=== PATIENT | female | born 1945 | race Caucasian/White ===

== ENCOUNTER 2020-03-15 21:54 | Inpatient (IN) | payer MEDICARE, OTHER ==
[~2020-03-15] VITALS: Ht 165.1 cm; Wt 77.1 kg
--- NOTE | 2020-03-15 22:07 | NUR ---
PT CIND[facility]UBE REPLACEMENT. PER REPORT "PEG TUBE WAS PULLED OUT APPROXIMATELY THIS MORNING". TRACHEOSTOMY IN PLACE ON O2 2LPM. PT NONVERBAL AT BASELINE BUT RESPONSIVE TO TACTILE STIMULI, NO ACUTE DISTRESS NOTED. PT CONNECTED TO THE IMPORT CUST[employer]S CLEARING AGENT AND POX.
--- NOTE | 2020-03-15 22:31 | NUR ---
JEWEL STAKER AT BEDSIDE FOR BLOOD DRAW
[2020-03-15 22:39] LABS: BASOPHILS % (AUTO) 0.4 % (0.0-2.0); EOSINOPHILS % (AUTO) 1.7 % (0.0-6.0); HEMATOCRIT 31 % (33-45); HEMOGLOBIN 10.1 g/dL (11.5-14.8); LYMPHOCYTES # (AUTO) 1.3 /CMM (0.8-4.8); LYMPHOCYTES % (AUTO) 11.3 % (20.0-44.0); MEAN CORPUSCULAR HGB CONC 32 g/dl (31.0-36.0); MEAN CORPUSCULAR VOLUME 93 fL (82-100); MONOCYTES # (AUTO) 0.5 /CMM (0.1-1.30); MONOCYTES % (AUTO) 4.6 % (2.0-12.0); NEUTROPHILS # (AUTO) 9.4 /CMM (1.8-8.9); PLATELET COUNT (AUTO) 687 /CMM (150-450); RED BLOOD CELL COUNT(AUTO) 3.34 MIL/uL (4.0-5.2); WHITE BLOOD COUNT (AUTO) 11.5 K/uL (4.3-11.0)
[2020-03-15 22:59] LABS: ALANINE AMINOTRANSFERASE 17 U/L (12-78); ALKALINE PHOSPHATASE 141 U/L (46-116); ASPARTATE AMINOTRANSFERASE 19 U/L (15-37); BILIRUBIN,TOTAL 0.2 mg/dL (0.2-1.0); CALCIUM, SERUM 8.4 mg/dL (8.5-10.1); CARBON DIOXIDE 25 mmol/L (21-32); CHLORIDE 96 mmol/L (98-107); CREATININE 6.1 mg/dL (0.6-1.3); GLUCOSE 97 mg/dL (74-106); POTASSIUM 3.5 mmol/L (3.5-5.1); SODIUM SERUM 133 mmol/L (136-145); TOTAL PROTEIN, SERUM 5.5 g/dL (6.4-8.2)
[2020-03-15 23:02] LABS: ALBUMIN 1.2 g/dL (3.4-5.0); UREA NITROGEN, BLOOD 101 mg/dL (7-18)
[2020-03-15] MEDS ORDERED: ACET160S PO (23:54)
[2020-03-15] MEDS ORDERED: ACET650S11 RC (23:56)
[2020-03-15] MEDS ORDERED: ALBU0.633 NEB (23:59)
[2020-03-15] MEDS ORDERED: ASPI-1169 GT (23:59)
[2020-03-16] MEDS ORDERED: BISA-79 RC (00:01)
[2020-03-16] MEDS ORDERED: DARB40VI SQ (00:03)
[2020-03-16] MEDS ORDERED: DILT-32 GT (00:03)
[2020-03-16] MEDS ORDERED: DOCU100C36 GT (00:04)
[2020-03-16] MEDS ORDERED: GLUC1KIT IM ×2 (00:05→04:42)
[2020-03-16] MEDS ORDERED: HYOS-17 SL (00:06)
[2020-03-16] MEDS ORDERED: INSU100V28 SQ (00:06)
[2020-03-16] MEDS ORDERED: ISOS20TA8 GT (00:07)
[2020-03-16] MEDS ORDERED: LEVE500T20 GT (00:08)
[2020-03-16] MEDS ORDERED: LEVO125T8 GT (00:09)
[2020-03-16] MEDS ORDERED: MORP20SO GT (00:11)
[2020-03-16] MEDS ORDERED: ONDA-97 PO ×2 (00:12→04:42)
[2020-03-16] MEDS ORDERED: CLOP75TA15 GT (00:13)
[2020-03-16] MEDS ORDERED: POTA10CA43 GT (00:15)
[2020-03-16] MEDS ORDERED: Z GUARD REMEDY 2 OZ OINT TP PRN (00:30)
[2020-03-16] MEDS ORDERED: INSULIN REGULAR, HUMAN 100 UNIT/ML 3 ML VIAL SQ SCH (00:30)
[2020-03-16] MEDS ORDERED: HYDROCODONE/APAP 5/325MG TABLET PO PRN (00:30)
[2020-03-16] MEDS ORDERED: MAG HYDROX/AL HYDROX/SIMETH 30 ML UDC PO PRN (00:30)
[2020-03-16] MEDS ORDERED: ZOLPIDEM TARTRATE 5 MG TABLET PO PRN (00:30)
[2020-03-16] MEDS ORDERED: ONDANSETRON HCL/PF 4 MG/2 ML VIAL IVP PRN (00:30)
[2020-03-16] MEDS ORDERED: DOCUSATE SODIUM 100 MG CAPSULE PO SCH (00:30)
[2020-03-16] MEDS ORDERED: ACETAMINOPHEN 325 MG TABLET PO PRN (00:30)
[2020-03-16] MEDS ORDERED: ALBUTEROL SULFATE XX SCH (00:30)
[2020-03-16] MEDS ORDERED: ACETAMINOPHEN 650 MG/SUPP.RECT RC PRN (00:30)
[2020-03-16] MEDS ORDERED: MAGNESIUM HYDROXIDE 30 ML UDC PO PRN (00:30)
[2020-03-16] MEDS ORDERED: Medication Not On Formulary EA (Glucagon,Human Recombinant (Glucagon Emergency Kit) 1 MG XX SCH (00:30)
[2020-03-16] MEDS ORDERED: HYOSCYAMINE SULFATE 0.125 MG TAB.SUBL SL PRN (00:30)
--- NOTE | 2020-03-16 00:42 | NUR ---
REPORT GIVEN TO CHARY WHEELER FOR IFTIKHAR
[2020-03-16 01:00] VITALS: BP 131/59
--- NOTE | 2020-03-16 01:00 | NUR ---
MS RN NOTES PATIENT ARRIVED ON FLOOR AT 0100. PATIENT IS NONVERBAL, OPENS EYES, AND RESPONSES TO PAINFUL STIMULI. BREATHING EVEN AND UNLABORED ON TRACH 2L. SHOWS NO SIGNS OF ACUTE RESPIRATORY DISTRESS, NO ACUTE PAIN. NO IV. HAS TRIPLE LUMEN NIKA CATH ON L UPPER CHEST. SHOWS NO SIGNS OF INFILTRATION, NO REDNESS. UNABLE TO DO COMPLETED INITIAL ASSESSMENT, PT UNABLE TO RESPOND TO QUESTION. SKIN ASSESSMENT COMPLETED AND BELONGINGS CHECKLIST COMPLETED. SAFETY PRECAUTIONS IN PLACE. BED IN LOWEST POSITION, LOCKED, AND CALL LIGHT KEPT WITHIN REACH. WILL CONTINUE TO MONITOR.
[2020-03-16] MEDS ORDERED: BISACODYL (5 MG) 5 MG TABLET.DR GT PRN (02:00)
[2020-03-16] MEDS ORDERED: LORAZEPAM ORAL SOLN 2 MG/ML ORAL.CONC GT SCH (02:00)
--- NOTE | 2020-03-16 02:00 | NUR ---
MS RN NOTES PT HAS POLST IN BINDER. AWAITING FOR MD IN MORNING FOR ORDERS FOR DNR. WILL CONTINUE TO MONITOR.
--- NOTE | 2020-03-16 04:30 | NUR ---
MS RN NOTES SPOKE TO ANDONIAN REGARDING VTE SCORE OF 5. DID NOT WANT TO ORDER PROPHYLAXIS AND DVT PUMP SAID TO AWAIT FOR MD IN THE MORNING TO SEE PT. WILL CONTINUE TO MONITOR.
[2020-03-16] MEDS ORDERED: LORA-259 IM ×2 (04:42)
[2020-03-16] MEDS ORDERED: LEVE500T20 PO (04:42)
[2020-03-16] MEDS ORDERED: ALBUT2 NEB (04:42)
[2020-03-16] MEDS ORDERED: MORPHINE SULFATE 10 MG/5 ML GT SCH (05:00)
[2020-03-16] MEDS: ISOSORBIDE DINITRATE (20MG) 20 MG TABLET GT SCH ×3 (05:00→21:00)
[2020-03-16] MEDS ORDERED: DILTIAZEM HCL CD 120 MG GT SCH (05:00)
--- NOTE | 2020-03-16 06:32 | NUR ---
MS RN NOTES PATIENT IS IN BED, NONVERBAL, OPENS EYES, AND RESPONSES TO PAINFUL STIMULI. BREATHING EVEN AND UNLABORED ON TRACH 2L. SHOWS NO SIGNS OF ACUTE RESPIRATORY DISTRESS, NO ACUTE PAIN. NO IV. HAS TRIPLE LUMEN NIKA CATH ON L UPPER CHEST. SHOWS NO SIGNS OF INFILTRATION, NO REDNESS. ALL NEEDS ATTENDED TO. ISOLATION PRECAUTIONS IN PLACE. SAFETY PRECAUTIONS IN PLACE. BED IN LOWEST POSITION, LOCKED, AND CALL LIGHT KEPT WITHIN REACH. WILL ENDORSE TO ONCOMING NURSE.
[2020-03-16 06:33] LABS: CALCIUM, SERUM 8.3 mg/dL (8.5-10.1); CARBON DIOXIDE 21 mmol/L (21-32); CHLORIDE 96 mmol/L (98-107); GLUCOSE 85 mg/dL (74-106); MAGNESIUM 2.7 mg/dL (1.8-2.4); PHOSPHORUS 6.6 mg/dL (2.5-4.9); POTASSIUM 3.5 mmol/L (3.5-5.1); SODIUM SERUM 134 mmol/L (136-145)
[2020-03-16 06:41] LABS: UREA NITROGEN, BLOOD 98 mg/dL (7-18)
[2020-03-16 06:59] LABS: BASOPHILS # (AUTO) 0.2 /CMM (0.0-0.2); BASOPHILS % (AUTO) 1.3 % (0.0-2.0); EOSINOPHILS % (AUTO) 2.5 % (0.0-6.0); HEMATOCRIT 29 % (33-45); HEMOGLOBIN 9.6 g/dL (11.5-14.8); LYMPHOCYTES % (AUTO) 11.8 % (20.0-44.0); MEAN CORPUSCULAR HGB CONC 34 g/dl (31.0-36.0); MEAN CORPUSCULAR VOLUME 93 fL (82-100); MONOCYTES # (AUTO) 0.7 /CMM (0.1-1.30); MONOCYTES % (AUTO) 4.2 % (2.0-12.0); NEUTROPHILS # (AUTO) 13.3 /CMM (1.8-8.9); NEUTROPHILS % (AUTO) 80.2 % (43.0-81.0); PLATELET COUNT (AUTO) 694 /CMM (150-450); RED BLOOD CELL COUNT(AUTO) 3.07 MIL/uL (4.0-5.2); WHITE BLOOD COUNT (AUTO) 16.5 K/uL (4.3-11.0)
--- NOTE | 2020-03-16 07:03 | NUR ---
MS RN NOTES PER FACILITY, REFUSED VACCINATION. UPDATED VACCINATION RECORD. WILL ENDORSE TO ONCOMING NURSE
--- NOTE | 2020-03-16 07:15 | NUR ---
ms rn received on bed,nonverbal patient, w/ tracheostomy connected to earosol,not in any form of distress,respirations even and unlabored,no sob noted, will monitor patient's condition.
[2020-03-16] MEDS ORDERED: HYDROCODONE/APAP 5/325MG TABLET GT PRN (07:25)
[2020-03-16] MEDS ORDERED: ONDANSETRON 4 MG TAB.RAPDIS GT PRN (07:30)
[2020-03-16] MEDS ORDERED: DOCUSATE SODIUM LIQ 100 MG/10 ML UDC GT PRN ×2 (07:30→07:37)
[2020-03-16] MEDS: DILTIAZEM HCL 30 MG TABLET GT SCH ×3 (07:36→21:00)
[2020-03-16] MEDS ORDERED: MAG HYDROX/AL HYDROX/SIMETH 30 ML UDC GT PRN (07:47)
[2020-03-16] MEDS ORDERED: MAGNESIUM HYDROXIDE 30 ML UDC GT PRN (07:47)
[2020-03-16 07:49] LABS: CHOLESTEROL 141 mg/dL (<200); HDL CHOLESTEROL 35 mg/dL (40-60); TRIGLYCERIDES 106 mg/dL (30-150)
[2020-03-16 07:50] LABS: LDL 93 mg/dL (0-99)
[2020-03-16 08:00] VITALS: BP 145/67
[2020-03-16] MEDS ORDERED: ACETAMINOPHEN 650 MG/20.3 ML UDC GT PRN (08:00)
[2020-03-16] MEDS ORDERED: LORAZEPAM INJ 2 MG/ML VIAL IM PRN (08:00)
[2020-03-16] MEDS ORDERED: BISACODYL SUPP (10 MG) 10 MG/SUPP.RECT SUPP.RECT RC PRN (08:00)
[2020-03-16] MEDS ORDERED: ALBUTEROL SULFATE 8 GM HFA.AER.AD IH PRN (08:00)
[2020-03-16] MEDS ORDERED: GLUCAGON,HUMAN RECOMBINANT 1 MG/VIAL VIAL IM PRN (08:00)
[2020-03-16] MEDS ORDERED: MORPHINE SULFATE SOLN CONCENTRATED 20 MG/ML PO PRN (08:00)
--- NOTE | 2020-03-16 08:20 | NUR ---
ms rn was seen by dr. laguerre,no order at this time.
--- NOTE | 2020-03-16 08:35 | NUR ---
WOUND CARE CONSULT: REVIEWED CHART, NURSING DOCUMENTATION AND PHOTOS WHICH INDICATE PREVIOUS G TUBE SITE, LEFT HEEL WOUND, SACRAL WOUND AND SKIN TEAR TO LEFT ARM, ALL PRESENT ON ADMISSION. RECOMMEND SURGICAL AND DPM CONSULTS. DR CHAVEZ AND DR SARAH NOTIFIED OF CONSULT REQUESTS. PT IS ON HERLINDA ISOFLEX LOW AIRLOSS BED. SKIN PROTECTION RECOMMENDATIONS DISCUSSED WITH NURSING STAFF. MD IN AGREEMENT WITH PLAN OF CARE. +
[2020-03-16] MEDS ORDERED: Medication Not On Formulary EA (Levetiracetam 1 TAB) GT SCH (09:00)
[2020-03-16] MEDS: LEVETIRACETAM SOL (5 ML) 100 MG/ML UDC GT SCH ×2 (09:00→21:00)
[2020-03-16] MEDS: ASPIRIN 81 MG TAB.CHEW GT SCH (09:00)
[2020-03-16] MEDS: LEVOTHYROXINE SODIUM 125 MCG TABLET GT SCH (09:00)
[2020-03-16] MEDS: CLOPIDOGREL BISULFATE 75 MG TABLET GT SCH (09:00)
--- NOTE | 2020-03-16 10:00 | NUR ---
ms rn was seen by nephrology oil tanker captain,awaiting for answer.
[2020-03-16] MEDS ORDERED: DEXTROSE 50%-WATER 50 ML DISP.SYRIN IV PRN (10:30)
[2020-03-16] MEDS ORDERED: ASPI-1169 GT (10:55)
[2020-03-16] MEDS ORDERED: DILT30TA35 GT (11:15)
[2020-03-16 16:00] VITALS: BP 137/77
[2020-03-16] MEDS: BLOOD SUGAR DIAGNOSTIC 1 EACH STRIP IN SCH ×2 (16:37→18:01)
--- NOTE | 2020-03-16 16:50 | NUR ---
MS RN PATIENT ENDORSED TO YOLANDA FOR IFTIKHAR, NO DISTRESS NOTED.
--- NOTE | 2020-03-16 17:00 | NUR ---
MS RN NOTE RECEIVED REPORT FROM CHINTAN DIEZ. PATIENT IN NO ACUTE DISTRESS. NO SOB NOTED. PATIENT ON TRACH 2L. PATIENT RECENT BLOOD SUGAR WAS 63. REPORTED RESULT TO REA ZAMORA. PER REA HAWTHORNE ORDER FOR D5 NS AT 70ML/HR. PATIENT BREATHING IS EVEN AND UNLABORED. SAFETY PRECAUTIONS IN PLACE. WILL CONTINUE TO MONITOR. Addendum: 03/16/20 at 1711 by YOLANDA MARTINEZ RN MS RN NOTE RECEIVED REPORT FROM CHINTAN DIEZ. PATIENT IN NO ACUTE DISTRESS. NO SOB NOTED. PATIENT ON TRACH 2L. PATIENT RECENT BLOOD SUGAR WAS 63. REPORTED RESULT TO REA ZAMORA. PATIENT NPO. REA AWARE. PER REA HAWTHORNE ORDER FOR D5 NS AT 70ML/HR. PATIENT BREATHING IS EVEN AND UNLABORED. SAFETY PRECAUTIONS IN PLACE. WILL CONTINUE TO MONITOR.
[2020-03-16] MEDS: IV D5/ 0.9% NACL 1,000 ML IV PRN (17:30)
--- NOTE | 2020-03-16 17:47 | NUR ---
MS RN NOTE PATIENT ONLY WITH NIKA CATH ACCESS. PATIENT WITH NO PERIPHERAL IV ACCESS SITE. PATIENT WITH EDEMA IN ARMS, HARDSTICK. PER REA FLUSH NIKA CATH AND SEE IF IT IS WORKING APPROPRIATELY. NIKA CATH FLUSHED, FLOWING WELL, NO RESISTANCE. PATIENT IS STABLE. REPORTED TO REA AND PER REA HAWTHORNE ORDER TO USE NIKA CATH FOR IV ACCESS IS OKAY.
--- NOTE | 2020-03-16 18:06 | NUR ---
MS RN NOTE PATIENT BLOOD SUGAR IS 60. PATIENT JUST STARTED ON D5NS. WILL RECHECK.
--- NOTE | 2020-03-16 18:12 | NUR ---
MS DIEZ NOTE REPORT GIVEN TO WHITNEY DIEZ FOR IFTIKHAR. PATIENT IN NO ACUTE DISTRESS. PATIENT BREATHING IS EVEN AND UNLABORED. PATIENT BED IS LOCKED AND IN LOWEST POSITION. CALL LIGHT WITHIN REACH. Addendum: 03/16/20 at 1914 by YOLANDA MARTINEZ RN MS DIEZ NOTE I STILL RESUMED CARE OF PATIENT PATIENT IN NO ACUTE DISTRESS. PATIENT BREATHING IS EVEN AND UNLABORED. PATIENT BED IS LOCKED AND IN LOWEST POSITION. CALL LIGHT WITHIN REACH. Addendum: 03/16/20 at 1914 by YOLANDA MARTINEZ RN MS DIEZ NOTE I STILL RESUMED CARE OF PATIENT. PATIENT IN NO ACUTE DISTRESS. PATIENT BREATHING IS EVEN AND UNLABORED. PATIENT BED IS LOCKED AND IN LOWEST POSITION. CALL LIGHT WITHIN REACH.
--- NOTE | 2020-03-16 18:32 | NUR ---
MS RN NOTE PATIENT BLOOD SUGAR IS 70. CURRENTLY ON D5NS AT 70ML/HR. PATIENT IN NO ACUTE DISTRESS.
[2020-03-16] MEDS ORDERED: CEFTRIAXONE 1 G VIAL IV SCH (19:00)
--- NOTE | 2020-03-16 19:20 | NUR ---
MS RN CLOSING NOTE PATIENT IN BED RESTING COMFORTABLY. PATIENT WITH TRACH ON 2L. PATIENT BREATHING IS EVEN AND UNLABORED. PATIENT IN NO ACUTE DISTRESS. NO SOB NOTED. PATIENT BLOOD SUGAR IS 82. PATIENT BED ALARM IS ON. HOB IS ELEVATED. PATIENT KEPT CLEAN, DRY, AND COMFORTABLE THROUGHOUT SHIFT. PATIENT BED IS LOCKED AND IN LOWEST POSITION. CALL LIGHT WITHIN REACH. WILL ENDORSE CARE TO PM SHIFT FOR IFTIKHAR.
--- NOTE | 2020-03-16 19:30 | NUR ---
RN NOTE RECEIVED PATIENT IN BED RESTING COMFORTABLY WITH HOB IN SEMI-FOWLERS POSITION. PT OPENS EYES. PT WITH TRACH CURRENTLY ON 2L O2 VIA NC BREATHING EVEN AND UNLABORED. PATIENT IN NO ACUTE DISTRESS. NO SOB NOTED. PT CURRENTLY NPO, LEFT CHEST QUNTON CATH PATENT AND IN PLACE. BED LOCKED AND IN LOWEST POSITION. CALL LIGHT WITHIN REACH. WILL CONTINUE TO MONITOR PT.
[2020-03-16 20:00] VITALS: BP 136/68
[2020-03-16] MEDS ORDERED: CEFTRIAXONE 1 G in IV D5W 50 ML IV SCH (20:00)
[2020-03-16] MEDS: CEFTRIAXONE 1 G in IV D5W 50 ML IV SCH (20:56)
--- NOTE | 2020-03-16 23:56 | NUR ---
RN NOTE COVID PCR IS NEGATIVE PER LAB
[2020-03-17] VITALS (7 sets, daily range): BP systolic 117–156; BP diastolic 62–85
--- NOTE | 2020-03-17 00:18 | NUR ---
RN NOTE ACCUCHECK BLOOD SUGAR 86. NO INSULIN NEEDED
[2020-03-17] MEDS: BLOOD SUGAR DIAGNOSTIC 1 EACH STRIP IN SCH ×4 (00:21→17:46)
--- NOTE | 2020-03-17 02:06 | NUR ---
RN NOTE REPORT GIVEN TO GIANFRANCO DIEZ FOR IFTIKHAR
--- NOTE | 2020-03-17 02:06 | NUR ---
MS RN NOTE RECEIVED PT, OPEN EYES. BREATHING EVEN AND UNLABORED WITH NO SOB OR ACUTE DISTRESS NOTED. NO S/S OF PAIN OR DISCOMFORT. LEFT CHEST HD SITE INTACT WITH FLUIDS INFUSING WELL. KEPT CLEAN AND DRY. ALL NEEDS RENDERED. REPOSITIONED. SRX2 UP. WILL CONTINUE TO MONITOR.
[2020-03-17] MEDS: DILTIAZEM HCL 30 MG TABLET GT SCH ×3 (05:00→21:00)
[2020-03-17] MEDS: ISOSORBIDE DINITRATE (20MG) 20 MG TABLET GT SCH ×3 (05:00→21:00)
[2020-03-17] MEDS: LEVOTHYROXINE SODIUM 125 MCG TABLET GT SCH (05:06)
[2020-03-17] MEDS: IV D5/ 0.9% NACL 1,000 ML IV PRN ×2 (06:06→18:39)
[2020-03-17 06:38] LABS: BASOPHILS # (AUTO) 0.2 /CMM (0.0-0.2); BASOPHILS % (AUTO) 0.8 % (0.0-2.0); EOSINOPHILS % (AUTO) 1.8 % (0.0-6.0); HEMATOCRIT 32 % (33-45); HEMOGLOBIN 10.2 g/dL (11.5-14.8); LYMPHOCYTES # (AUTO) 2.5 /CMM (0.8-4.8); LYMPHOCYTES % (AUTO) 12.2 % (20.0-44.0); MEAN CORPUSCULAR HGB CONC 32 g/dl (31.0-36.0); MEAN CORPUSCULAR VOLUME 96 fL (82-100); MONOCYTES # (AUTO) 1.7 /CMM (0.1-1.30); MONOCYTES % (AUTO) 8.1 % (2.0-12.0); NEUTROPHILS % (AUTO) 77.1 % (43.0-81.0); PLATELET COUNT (AUTO) 800 /CMM (150-450); RED BLOOD CELL COUNT(AUTO) 3.34 MIL/uL (4.0-5.2); WHITE BLOOD COUNT (AUTO) 20.7 K/uL (4.3-11.0)
--- NOTE | 2020-03-17 07:30 | NUR ---
MS RN OPENING NOTES Bedside endorsement done. Patient is sleeping in bed, able to open eyes. Pt w/ tracheostomy, breathing even and unlabored, on O2 at 2LPM, no acute distress noted. With Taran cath on L chest, IVF of D5 running at 70cc/hr. Incontinent and bb as per report, no HD schedule, awaiting Dr. Flores for GI consult. Safety precautions in place: bed locked and on lowest position, side rails up x2, call light within reach. Will continue to monitor.
--- NOTE | 2020-03-17 07:34 | NUR ---
ms rn closing note pt in bed. breathing even and unlabored with no sob or acute distress noted. no s/s of pain or discomfort. left chest hd cath patent. iv fluids well. No bm and urine output noted. Pt kept clean and dry. all needs rendered, repositioned q2. srx2 up. Endorsed to am nurse for continuity of care.
[2020-03-17] MEDS: CLOPIDOGREL BISULFATE 75 MG TABLET GT SCH (08:33)
[2020-03-17] MEDS: ASPIRIN 81 MG TAB.CHEW GT SCH (08:33)
[2020-03-17] MEDS: LEVETIRACETAM SOL (5 ML) 100 MG/ML UDC GT SCH (08:33)
[2020-03-17] MEDS ORDERED: INFLUENZA VACCINE 2020-21 0.5 ML DISP.SYRIN IM ONE ×2 (10:30→11:14)
[2020-03-17] MEDS ORDERED: PNEUMOCOCCAL 23-VAL P-SAC VAC 0.5 ML VIAL SQ ONE (10:30)
--- NOTE | 2020-03-17 10:30 | NUR ---
RN NOTES INFORMED BY CHARGE NURSE THAT PATIENT IS OKAY TO RECEIVE FLU AND PNEUMO VACCINES.
[2020-03-17] MEDS: INSULIN REGULAR, HUMAN 100 UNIT/ML 3 ML VIAL SQ PRN ×2 (11:40→17:47)
--- NOTE | 2020-03-17 11:43 | NUR ---
RN NOTES FLU/PNEUMONIA QUESTIONNAIRE COMPLETED. ADMINISTERED PNEUMOVAX 23 IM ON RIGHT DELTOID, LOT NUMBER [id number], EXP 01/03/2021. NO ADVERSE REACTION ON INJECTION SITE.
--- NOTE | 2020-03-17 12:33 | NUR ---
CHARY NOTES ADMINISTERED FLU VACCINE ON L DELTOID, LOT NUMBER [id number], EXP 11/01/2020, NO IMMEDIATE ADVERSE REACTION ON INJECTION SITE.
--- NOTE | 2020-03-17 14:00 | NUR ---
RN NOTES RECEIVED CALL FROM KRISTINA FROM SURGERY AND INFORMED THAT PATIENT IS FOR GT REPLACEMENT TOMORROW 03/18/[address] AT AROUND [address] FIELDS. PATIENT CURRENTLY NPO.
[2020-03-17] MEDS ORDERED: ANESTHESIA TRAY IN PYXIS 1 EA TRAY MC ONE (14:30)
--- NOTE | 2020-03-17 14:49 | NUR ---
RN NOTES CALLED JEAN-PIERRE MELÉNDEZ OF PATIENT, AND INFORMED ABOUT GT REPLACEMENT PROCEDURE AND ASKED IF HE CONSENTS WITH THE PROCEDURE. NEPHEW PROVIDED TELEPHONE CONSENT, OBTAINED BY ME AND WITNESSED BY ANOTHER RN IMMACULATE. CONSENT PLACED IN CHART.
[2020-03-17] MEDS: APIXABAN 2.5 MG TABLET PO SCH (16:36)
--- NOTE | 2020-03-17 18:45 | NUR ---
MS RN CLOSING NOTES Patient is in bed, awake, opens eyes. Pt w/ trach collar, breathing even and unlabored, on O2 at 2LPM, no acute distress noted. Suctioned prn during shift. Taran cath on L chest intact and patent, IVF of D5 running at 70cc/hr, infusing well. For scheduled GT replacement with Dr. Flores tomorrow as per James from surgery. kunal Jones, aware and consented w/ procedure. Kept clean and comfortable during shift. Safety precautions maintained: bed locked and on lowest position, side rails up x2, call light within reach. Will endorse to marketing designer RN for brady.
--- NOTE | 2020-03-17 19:30 | NUR ---
MS RN OEPNING NOTE RECEIVED PATIENT IN BED. NONVERBAL, OPENS EYES. ON TRACH COLLAR WITH NS @2L/MIN. RESPIRATIONS ARE EVEN AND UNLABORED. NO S/S SOB NOTED. NO S/S PAIN NOTED AT THIS TIME. IN NO APPARENT DISTRESS. IV ACCESS IN NIKA CATH IN LEFT CHEST WALL RUNNING D5NS@70ML/HR. BED IS LOW AND LOCKED, HOB ELEVATED IN SEMI FOWLERS, SIDE RIALS UP X3. CALL LIGHT WITHIN REACH. WILL CONTINUE TO MONITOR.
[2020-03-17] MEDS: CEFTRIAXONE 1 G in IV D5W 50 ML IV SCH (20:14)
--- NOTE | 2020-03-17 20:31 | NUR ---
MS RN NOTE INFORMED DR. KIM THAT PATIENT HAS KEPPRA 500MG PO BUT NO GTUBE IS PRESENT, AND IF WOULD LIKE TO CHANGE TO IV. MD SAID IV IS OK. INFORMED HIM PATIENT ONLY HAS NIKA CATH THAT IS BEING USED FOR IVF. MD SAID ASK PHARMACY IF IT IS OK TO PUT KEPPRA THROUGH NIKA CATH. SPOKE WITH PHARMACY, INFORMED ME TO PLACE ORDER FOR KEPPRA IV FOR THEM TO FORMULATE AND TRY PLACING A IV LINE IN PATIENT TO BE SAFE. WILL ATTEMPT TO PLACE IV LINE.
--- NOTE | 2020-03-17 22:20 | NUR ---
MS RN NOTE INFORMED DR. KIM THAT I AM UNABLE TO PLACE IV D/T PATIENT HAS LOTS OF EDEMA. MD STATED TRY WITH ACCU VEIN. ATTEMPTED BUT NO SUCCESS. STATED OK TO PLACE ORDER FOR MIDLINE. NURSING SUP APPROVED SUSANA SON. CALLED MIDLINE NURSE. WILL HOLD KEPPRA UNTIL MIDLINE INSERTED.
[2020-03-18] MEDS: BLOOD SUGAR DIAGNOSTIC 1 EACH STRIP IN SCH ×4 (00:38→18:11)
--- NOTE | 2020-03-18 00:44 | NUR ---
ms rn note accu check bs reads 134. no insulin coverage given d/t patient is npo. will continue to monitor.
[2020-03-18] MEDS: LEVETIRACETAM (500MG) 500 MG in IV NS 0.9% 100 ML IV SCH ×4 (02:35→21:10)
--- NOTE | 2020-03-18 02:37 | NUR ---
ms rn note midline just placed in jeny#[id number]. will administer keppra now. no seizures noted. will continue to monitor.
[2020-03-18] MEDS: ISOSORBIDE DINITRATE (20MG) 20 MG TABLET GT SCH ×3 (05:00→21:04)
[2020-03-18] MEDS: DILTIAZEM HCL 30 MG TABLET GT SCH ×3 (05:00→21:04)
[2020-03-18] MEDS: LEVOTHYROXINE SODIUM 125 MCG TABLET GT SCH (05:24)
--- NOTE | 2020-03-18 06:06 | NUR ---
ms rn note accu check read bs 143. no insulin coverage d/t patient is npo for surgery. will endorse to next shift.
--- NOTE | 2020-03-18 07:45 | NUR ---
MS RN NOTE BLADDER SCANNER SHOWS 70 MLS. ENDORSED TO DAY CHARY VILLARREAL
--- NOTE | 2020-03-18 07:52 | NUR ---
MS RN CLOSING NOTE PATIENT RESTING IN BED. REMAINS NONVERBAL, OPENS EYES. ON TRACH CONNECTED TO COOL AEROSOL. NO RESP DISTRESS. NO S/S PAIN. NO DISTRESS. NIKA CATH MAINTAINED. MARIA R MIDLINE RUNNING D5NS@70ML/HR. BED REMAINS LOW AND LOCKED, HOB ELEVATED IN SEMI FOWLERS, SIDE RIALS UP X3. CALL LIGHT WITHIN REACH. WILL ENDORSE TO NEXT SHIFT
--- NOTE | 2020-03-18 08:00 | NUR ---
RECEIVED PT.THIS AM,TACH WITH AEROSOL 28%.HOB ELEVATED.NO DISTRESS.VS STABLE.NPO FOR SURG.IV INFUSING.
[2020-03-18] MEDS: ASPIRIN 81 MG TAB.CHEW GT SCH (08:54)
[2020-03-18] MEDS: APIXABAN 2.5 MG TABLET PO SCH ×2 (08:54→18:17)
--- NOTE | 2020-03-18 11:25 | NUR ---
RETURNED TO RM. FROM OR.VS STABLE.G-TUBE SITE CLEAN AND DRY TUBE IN PLACE.DR. FIELDS ON FLOOR AND STATED TO RESUME ORDERS AND START T.FEEDING.
[2020-03-18] MEDS ORDERED: NEPRO 1,000 ML BOTTLE GT PRN ×2 (12:00)
[2020-03-18] MEDS: CLOPIDOGREL BISULFATE 75 MG TABLET GT SCH (13:56)
--- NOTE | 2020-03-18 14:00 | NUR ---
VS STABLE,NO CHANGE IN STATUS.
[2020-03-18] MEDS: IV D5/ 0.9% NACL 1,000 ML IV PRN (15:15)
[2020-03-18 16:00] VITALS: BP 111/61
--- NOTE | 2020-03-18 16:00 | NUR ---
NO DISTRESS,TOLERATING TUBE FEEDING.
--- NOTE | 2020-03-18 16:30 | NUR ---
RN IN TO RM.JUST VOMITED SMALL AMT. APPARENTLY FROM MOUTH SUCTIONED AND NO RESIDUAL VOMITUS IN TRACH.
[2020-03-18] MEDS ORDERED: VANCOMYCIN 1 GM in IV D5W 250 ML IV ONE (17:30)
[2020-03-18] MEDS ORDERED: PIPERACILLIN /TAZOBACTAM 3.375 G in IV D5W 50 ML IV SCH (18:00)
[2020-03-18] MEDS: INSULIN REGULAR, HUMAN 100 UNIT/ML 3 ML VIAL SQ PRN (18:46)
[2020-03-18 20:00] VITALS: BP 147/66
[2020-03-18] MEDS: PIPERACILLIN /TAZOBACTAM 2.25 G in IV D5W 50 ML IV SCH (20:00)
[2020-03-18 20:10] VITALS: BP 147/66
--- NOTE | 2020-03-18 20:28 | NUR ---
MS RN: CONTINUITY OF CARE Patient in bed. eyes opens, non verbal. Trach intact to cool aerosol, Oxygen 5L, FiO2 28%. Gtube in place, on tube feeding, no residual. Maintained upright posture. Fall; skin; aspiration precaution maintained.
[2020-03-19] MEDS: BLOOD SUGAR DIAGNOSTIC 1 EACH STRIP IN SCH ×3 (00:04→12:22)
[2020-03-19] MEDS: INSULIN REGULAR, HUMAN 100 UNIT/ML 3 ML VIAL SQ PRN ×2 (00:05→06:08)
[2020-03-19] MEDS: PIPERACILLIN /TAZOBACTAM 2.25 G in IV D5W 50 ML IV SCH ×2 (05:35→13:36)
[2020-03-19] MEDS: LEVOTHYROXINE SODIUM 125 MCG TABLET GT SCH (05:48)
[2020-03-19] MEDS: DILTIAZEM HCL 30 MG TABLET GT SCH ×2 (05:48→13:37)
[2020-03-19] MEDS: ISOSORBIDE DINITRATE (20MG) 20 MG TABLET GT SCH ×2 (05:48→13:37)
--- NOTE | 2020-03-19 06:09 | NUR ---
PATIENT RECEIVED ON 28% AEROSOL T-TUBE, TOLERATING WITH NO DISTRESS/SOB NOTED. PRN SUCTION. AMBU BAG AT BEDSIDE. PULSE OXIMETER ALARM AUDIBLE AND VISIBLE. Addendum: 03/19/20 at 0610 by DESTINEE SY RT Amended: Links added.
--- NOTE | 2020-03-19 06:13 | NUR ---
MS RN: END OF SHIFT REPORT Patient VS remains stable. Tolerating tube feeding Nepro at 40ml/hr, minimal residual. Sacral and right arm wound dressing changed. Turned and repositioned every 2 hours. Trach care done. Fall, skin , aspiration precaution maintained. Will endorse to oncoming RN.
[2020-03-19 06:15] LABS: BASOPHILS # (AUTO) 0.1 /CMM (0.0-0.2); BASOPHILS % (AUTO) 0.5 % (0.0-2.0); EOSINOPHILS % (AUTO) 1.3 % (0.0-6.0); HEMATOCRIT 26 % (33-45); HEMOGLOBIN 8.7 g/dL (11.5-14.8); LYMPHOCYTES # (AUTO) 1.3 /CMM (0.8-4.8); LYMPHOCYTES % (AUTO) 9.3 % (20.0-44.0); MEAN CORPUSCULAR HGB CONC 33 g/dl (31.0-36.0); MEAN CORPUSCULAR VOLUME 92 fL (82-100); MONOCYTES # (AUTO) 0.8 /CMM (0.1-1.30); MONOCYTES % (AUTO) 5.7 % (2.0-12.0); NEUTROPHILS # (AUTO) 11.3 /CMM (1.8-8.9); NEUTROPHILS % (AUTO) 83.2 % (43.0-81.0); PLATELET COUNT (AUTO) 640 /CMM (150-450); RED BLOOD CELL COUNT(AUTO) 2.85 MIL/uL (4.0-5.2); WHITE BLOOD COUNT (AUTO) 13.5 K/uL (4.3-11.0)
[2020-03-19 06:40] LABS: CALCIUM, SERUM 7.7 mg/dL (8.5-10.1); CARBON DIOXIDE 19 mmol/L (21-32); CHLORIDE 100 mmol/L (98-107); CREATININE 6.7 mg/dL (0.6-1.3); GLUCOSE 99 mg/dL (74-106); SODIUM SERUM 137 mmol/L (136-145)
[2020-03-19 06:49] LABS: POTASSIUM 2.6 mmol/L (3.5-5.1); UREA NITROGEN, BLOOD 105 mg/dL (7-18)
--- NOTE | 2020-03-19 07:06 | NUR ---
0657 Critical lab value 2.6 Potassium reported to CHARY Costa by Clotilde/lab 0658 Page iron miner MD, awaiting call back.
--- NOTE | 2020-03-19 07:33 | NUR ---
Received call from CIARA Pabon with orders placed. Endorsed to CHARY Caraballo.
[2020-03-19 08:00] VITALS: BP 148/66
--- NOTE | 2020-03-19 08:00 | NUR ---
MS RN NOTES PATIENT IN BED NONE VERBAL. PATIENT WITH TRACH ON COOL AEROSOL. NO SOB OR ACUTE DISTRESS NOTED. PATIENT WITH MIDLINE ON RIGHT UPPER ARM, INTACT, PATENT. SAFETY MEASURES IN PLACE . WILL CONTINUE TO MONITOR.
[2020-03-19] MEDS: POTASSIUM CL. PREMIX PERIPHER. 50 ML IV SCH ×4 (08:30→15:05)
[2020-03-19] MEDS: LEVETIRACETAM (500MG) 500 MG in IV NS 0.9% 100 ML IV SCH (08:32)
[2020-03-19] MEDS: ASPIRIN 81 MG TAB.CHEW GT SCH (08:32)
[2020-03-19] MEDS: CLOPIDOGREL BISULFATE 75 MG TABLET GT SCH (08:32)
[2020-03-19] MEDS: APIXABAN 2.5 MG TABLET PO SCH (08:32)
[2020-03-19] MEDS ORDERED: APIXABAN 2.5 MG TABLET GT SCH ×2 (08:35→17:00)
[2020-03-19] MEDS ORDERED: ZOLPIDEM TARTRATE 5 MG TABLET GT PRN (08:35)
[2020-03-19] MEDS ORDERED: MORPHINE SULFATE SOLN CONCENTRATED 20 MG/ML GT PRN (08:35)
[2020-03-19] MEDS ORDERED: VANCOMYCIN 500 MG in IV D5W 100 ML IV PRN (09:00)
[2020-03-19] MEDS ORDERED: PIPE3.379 IV (11:31)
[2020-03-19] MEDS ORDERED: Nepro GT (11:31)
[2020-03-19] MEDS ORDERED: LEVE100S NG (11:31)
[2020-03-19] MEDS ORDERED: ACET650S11 RC (11:31)
[2020-03-19] MEDS ORDERED: ACET650S26 GT (11:31)
[2020-03-19] MEDS ORDERED: INSU100V28 SQ (11:31)
[2020-03-19] MEDS ORDERED: DILT30TA14 GT (11:31)
[2020-03-19] MEDS ORDERED: POTA20PA3 PO (11:33)
[2020-03-19 13:37] VITALS: BP 125/61
--- NOTE | 2020-03-19 16:22 | NUR ---
CALLED REPORT TO DANNA DIEZ AT [facility]. ALSO NOTIFIED PATIENTS JEAN-PIERRE Moore OF PATIENTS DISCHARGE.
--- NOTE | 2020-03-19 16:52 | NUR ---
MS RN NOTES PATIENT DISCHARGED TO [facility]. PATIENT IN STABLE CONDITION. MD AWARE OF ALL ABNORMAL LABS AND TESTS. PATIENT BEING DISCHARGED WITH MIDLINE SINCE SHE WILL BE CONTINUING IV ATB AT THE FACILITY FOR 6 MORE DAYS. MIDLINE INTACT PATENT. DISCHARGE PROTOCOL FOLLOWED. ALL BELONGINGS ACCOUNTED FOR. BELONGING LIST SIGNED BY TWO RNS. PATIENT DISCHARGED WITH AMBULANCE WITH EMT.
[2020-03-19] MEDS ORDERED: LEVETIRACETAM SOL (5 ML) 100 MG/ML UDC NG SCH (21:00)
[2020-03-20] MEDS ORDERED: VANCOMYCIN 0.75 GM in IV D5W 250 ML IV SCH (09:00)
== END 2020-03-19 17:00 | DRG 393 ==
LOC: ER 21:58 → MEDSG2 03-16 00:43 → MED 03-17 02:35
PROVIDERS: ADMIT Nurse Practitioner Acute Care; ATTEND Nurse Practitioner Acute Care
PROC: 0DH63UZ Insertion of Feeding Device into Stomach, Percutaneous Approach (ICD-10-PCS; principal; 2020-03-18)
PROC: 05H933Z Insertion of Infusion Device into Right Brachial Vein, Percutaneous Approach (ICD-10-PCS; 2020-03-18)
DX: K94.23 Gastrostomy malfunction (principal); N18.6 End stage renal disease; J18.9 Pneumonia, unspecified organism; I12.0 Hypertensive chronic kidney disease with stage 5 chronic kidney disease or end stage renal disease; J90 Pleural effusion, not elsewhere classified; J96.10 Chronic respiratory failure, unspecified whether with hypoxia or hypercapnia; E03.9 Hypothyroidism, unspecified; G40.909 Epilepsy, unspecified, not intractable, without status epilepticus; E11.22 Type 2 diabetes mellitus with diabetic chronic kidney disease; Y83.3 Surgical operation with formation of external stoma as the cause of abnormal reaction of the patient, or of later complication, without mention of misadventure at the time of the procedure; Y92.129 Unspecified place in nursing home as the place of occurrence of the external cause; Y82.9 Unspecified medical devices associated with adverse incidents; D63.8 Anemia in other chronic diseases classified elsewhere; E78.5 Hyperlipidemia, unspecified; K29.70 Gastritis, unspecified, without bleeding; K21.9 Gastro-esophageal reflux disease without esophagitis; F03.90 Unspecified dementia, unspecified severity, without behavioral disturbance, psychotic disturbance, mood disturbance, and anxiety; F09 Unspecified mental disorder due to known physiological condition; E87.6 Hypokalemia; R13.10 Dysphagia, unspecified; Z66 Do not resuscitate; Z51.5 Encounter for palliative care; Z79.4 Long term (current) use of insulin; Z79.02 Long term (current) use of antithrombotics/antiplatelets; Z79.82 Long term (current) use of aspirin; Z99.2 Dependence on renal dialysis; Z79.51 Long term (current) use of inhaled steroids; Z79.899 Other long term (current) drug therapy; Y95 Nosocomial condition; L89.626 Pressure-induced deep tissue damage of left heel; M62.562 Muscle wasting and atrophy, not elsewhere classified, left lower leg; M62.561 Muscle wasting and atrophy, not elsewhere classified, right lower leg
CPT/HCPCS: 31720; 36415; 43246; 71045-TC; 80048-TC; 80053-TC; 80061-TC; 80202-TC; 82962-TC; 83605-TC; 83735-TC; 84100-TC; 85025-TC; 85730-TC; 87040-TC; 87081-TC; 90732; 94640-TC; 94762-TC; 94799-TC; G0378; J0690; J0696; J1815; J1953; J2543; J2704; J3370; J3480; J7030; J7042; J7050; J7060; Q2036; U0003